=== PATIENT | female | born 2000 | race Hispanic/Latino ===

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

== ENCOUNTER 2019-05-23 15:36 | Inpatient (IN) | payer MEDICAID, OTHER ==
[~2019-05-23] VITALS: Ht 160 cm; Wt 90.6 kg
[2019-05-23] MEDS ORDERED: METOCLOPRAMIDE 10 MG/2 ML VIAL ONE (16:09)
[2019-05-23 16:10] LABS: BASOPHILS % (AUTO) 0.3 % (0.0-5.0); HEMATOCRIT 39.1 % (36-48); LYMPHOCYTES % (AUTO) 29.7 % (21.0-51.0); MEAN CORPUSCULAR HEMOGLOBIN 30.6 pg (27.0-33.0); MEAN CORPUSCULAR VOLUME 87.2 fL (80-100); MONOCYTES % (AUTO) 9.1 % (3.0-13.0); NEUTROPHILS % (AUTO) 59.9 % (40.0-77.0); PLATELET COUNT (AUTO) 234 K/uL (130-400); RED BLOOD CELL COUNT(AUTO) 4.49 MIL/uL (4.00-5.50); RED CELL DISTRIBUTION WIDTH 13.9 % (11.0-15.5); WHITE BLOOD COUNT (AUTO) 7.6 K/uL (4.8-10.8)
[2019-05-23] MEDS ORDERED: SODIUM CHLORIDE 0.9% 1000ML 1,000 ML IV ONE ×3 (16:10→20:21)
[2019-05-23 16:21] LABS: CREATININE 4.2 mg/dL (0.5-1.5); POTASSIUM 3.6 mmol/L (3.5-5.1)
[2019-05-23 16:31] LABS: ALBUMIN 3.5 g/dL (3.5-5.0); BILIRUBIN,TOTAL 0.8 mg/dL (0.2-1.0); TOTAL PROTEIN, SERUM 7.9 g/dL (6.0-8.3)
[2019-05-23 17:58] LABS: APPEARANCE,URINE Clear (CLEAR); BILIRUBIN,URINE Negative (NEGATIVE); COLOR,URINE Yellow (YELLOW); GLUCOSE, URINE (UA) Negative (NEGATIVE); KETONES,URINE Trace mg/dL (NEGATIVE); LEUKOCYTE ESTERASE ,URINE Negative (NEGATIVE); NITRATE,URINE Negative (NEGATIVE); OCCULT BLOOD,URINE Small (NEGATIVE); PH,URINE 5.5 (5.0-8.0); PROTEIN,URINE POS 1+ mg/dL (NEGATIVE); UROBILINOGEN,URINE 0.2 mg/dL (0.2-1.0)
[2019-05-23 18:05] LABS: AMPHET/METH SCREEN,URINE NEGATIVE (NEGATIVE); BARBITURATE SCREEN, URINE POSITIVE (NEGATIVE); BENZODIAZEPINES SCREEN,URINE NEGATIVE (NEGATIVE); CANNABINOID SCREEN,URINE NEGATIVE (NEGATIVE); COCAINE SCREEN,URINE NEGATIVE (NEGATIVE); OPIATE SCREEN,URINE NEGATIVE (NEGATIVE); PHENCYCLIDINE SCREEN,URINE NEGATIVE (NEGATIVE)
[2019-05-23 18:11] LABS: RBC,URINE 0-1 /HPF (0-1); WBC,URINE 0-1 /HPF (0-1)
[2019-05-23 18:12] LABS: BACTERIA,URINE Few /HPF (None Seen)
[2019-05-23] MEDS: SODIUM CHLORIDE 0.9% 1000ML 1,000 ML IV SCH (19:51)
[2019-05-23] MEDS ORDERED: ACETAMINOPHEN 325 MG TAB PO PRN ×2 (20:00)
[2019-05-23] MEDS ORDERED: FAMOTIDINE/PF 20 MG/2 ML VIAL IV ONE (20:21)
[2019-05-23 21:15] VITALS: BP 126/69
[2019-05-23] MEDS: ONDANSETRON HCL 4 MG/2 ML VIAL IV PRN (21:58)
[2019-05-23] MEDS ORDERED: LEVO150 PO (22:07)
[2019-05-23] MEDS ORDERED: TRAZ-187 PO (22:08)
[2019-05-23 23:28] VITALS: BP 111/61
[2019-05-24 03:20] VITALS: BP 115/57
[2019-05-24 05:37] LABS: CREATININE 4.4 mg/dL (0.5-1.5); POTASSIUM 3.7 mmol/L (3.5-5.1)
[2019-05-24] MEDS: SODIUM CHLORIDE 0.9% 1000ML 1,000 ML IV SCH ×3 (05:47→17:27)
[2019-05-24 08:00] VITALS: BP 110/64
[2019-05-24] MEDS: ONDANSETRON HCL 4 MG/2 ML VIAL IV PRN (08:37)
[2019-05-24] MEDS: FAMOTIDINE/PF 20 MG/2 ML VIAL IV SCH (08:37)
[2019-05-24] MEDS: ENOXAPARIN SODIUM 30 MG/0.3 ML SQ SCH (08:39)
[2019-05-24 12:00] VITALS: BP 110/59
[2019-05-24] MEDS: PROMETHAZINE HCL 25 MG/ML 1ML AMPULE IM PRN ×2 (12:57→17:20)
[2019-05-24] MEDS: MORPHINE SULFATE 2 MG/ML 1ML SYG IVP PRN ×3 (13:36→21:21)
[2019-05-24 16:00] VITALS: BP 115/59
--- NOTE | 2019-05-24 16:00 | NUR ---
INIITAL MET W PT, MOM AT BEDSIDE, LIVES WITH MOM, TAM MCCULLOUGH [phone] WHO WILL SUPPLY TRANPOSRT HOME, PT IS INP OF DAVID, A FT STUDENT- BIOLOGY- AT [employer] AND HAS BEEN GOING TO [facility] FOR ABOUT A YEAR, HOME IS SAFE AND ACCESSIBLE, NO CURRENT INSURANCE, AND DCP IS HOME NEPHROLOGY CONSULT PENDING Addendum: 05/24/19 at 1841 by RAFAEL MCCULLOUGH RN CM Amended: Links added.
--- NOTE | 2019-05-24 18:00 | NUR ---
Notified Dr. Dominguez of consultation. No new orders received.
[2019-05-24 19:20] VITALS: BP 106/58
[2019-05-25] VITALS (7 sets, daily range): BP systolic 109–125; BP diastolic 59–76
[2019-05-25] MEDS: MORPHINE SULFATE 2 MG/ML 1ML SYG IVP PRN ×2 (04:18→20:23)
[2019-05-25] MEDS: PROMETHAZINE HCL 25 MG/ML 1ML AMPULE IM PRN (04:18)
[2019-05-25 05:56] LABS: HEMATOCRIT 33.2 % (36-48); MEAN CORPUSCULAR HEMOGLOBIN 31.2 pg (27.0-33.0); MEAN CORPUSCULAR HGB CONC 35.4 g/dL (32.0-36.0); MEAN CORPUSCULAR VOLUME 88.1 fL (80-100); NUCLEATED RED BLOOD CELLS 0.1 % (0.0-0.19); PLATELET COUNT (AUTO) 197 K/uL (130-400); RED BLOOD CELL COUNT(AUTO) 3.77 MIL/uL (4.00-5.50); RED CELL DISTRIBUTION WIDTH 13.7 % (11.0-15.5); WHITE BLOOD COUNT (AUTO) 6.9 K/uL (4.8-10.8)
[2019-05-25 06:07] LABS: CREATININE 4.8 mg/dL (0.5-1.5); MAGNESIUM 1.9 mg/dL (1.80-2.40); PHOSPHORUS 5.1 mg/dL (2.5-4.9); POTASSIUM 3.9 mmol/L (3.5-5.1); URIC ACID 8.7 mg/dL (2.6-7.2)
[2019-05-25] MEDS: FOLIC ACID/VITAMIN B COMP W-C 1 MG CAP/TAB PO SCH (09:00)
[2019-05-25] MEDS ORDERED: MORPHINE SULFATE 2 MG/ML 1ML SYG IVP PRN (09:45)
[2019-05-25] MEDS: SODIUM CHLORIDE 0.9% 1000ML 1,000 ML IV SCH ×3 (10:03→20:25)
[2019-05-25] MEDS ORDERED: MORPHINE SULFATE 2 MG/ML 1ML SYG ONE (10:08)
[2019-05-25] MEDS: FAMOTIDINE/PF 20 MG/2 ML VIAL IV SCH (10:13)
[2019-05-25] MEDS: ENOXAPARIN SODIUM 30 MG/0.3 ML SQ SCH (10:22)
[2019-05-25] MEDS: ONDANSETRON HCL 4 MG/2 ML VIAL IV PRN ×2 (16:55→21:43)
[2019-05-26] MEDS: SODIUM CHLORIDE 0.9% 1000ML 1,000 ML IV SCH ×3 (03:34→21:04)
[2019-05-26] MEDS: ONDANSETRON HCL 4 MG/2 ML VIAL IV PRN ×3 (03:34→21:08)
[2019-05-26] MEDS: MORPHINE SULFATE 2 MG/ML 1ML SYG IVP PRN ×3 (03:34→21:09)
[2019-05-26 03:59] VITALS: BP 117/73
[2019-05-26 05:06] LABS: HEMATOCRIT 31.1 % (36-48); MEAN CORPUSCULAR HEMOGLOBIN 30.9 pg (27.0-33.0); MEAN CORPUSCULAR HGB CONC 35.8 g/dL (32.0-36.0); MEAN CORPUSCULAR VOLUME 86.3 fL (80-100); PLATELET COUNT (AUTO) 196 K/uL (130-400); RED CELL DISTRIBUTION WIDTH 13.5 % (11.0-15.5); WHITE BLOOD COUNT (AUTO) 6.3 K/uL (4.8-10.8)
[2019-05-26 05:15] LABS: CREATININE 3.5 mg/dL (0.5-1.5); MAGNESIUM 1.7 mg/dL (1.80-2.40); PHOSPHORUS 5.2 mg/dL (2.5-4.9); POTASSIUM 3.9 mmol/L (3.5-5.1)
[2019-05-26 08:00] VITALS: BP 96/55
[2019-05-26] MEDS: FAMOTIDINE/PF 20 MG/2 ML VIAL IV SCH (08:22)
[2019-05-26] MEDS: ENOXAPARIN SODIUM 30 MG/0.3 ML SQ SCH (08:23)
[2019-05-26] MEDS: FOLIC ACID/VITAMIN B COMP W-C 1 MG CAP/TAB PO SCH (08:33)
--- NOTE | 2019-05-26 08:33 | NUR ---
Patient feeling nauseous and declined vitamin PO for now. Iv Zofran administered for nausea.
[2019-05-26 10:04] LABS: HEMOGLOBIN A1C 4.9 % (4.0-6.0)
[2019-05-26 10:12] LABS: HEPATITIS A ANTIBODY IGM Negative (Negative); HEPATITIS B CORE IGM Negative (Negative); HEPATITIS Bs ANTIGEN SCREEN P Negative (Negative)
[2019-05-26 12:00] VITALS: BP 116/60
--- NOTE | 2019-05-26 12:16 | NUR ---
Prepared Reglan for IV administration per physician order. Patient reports eating jello, tea, and apple juice without nausea or vomiting. Patient educated on effects of Reglan to assist with digestion and nausea and vomiting. Side effects of dizziness and drowsiness discussed, patient and father verbalized understanding. Patient requests to shower prior to administration. Medication held until after shower per patient's request.
[2019-05-26] MEDS: METOCLOPRAMIDE 10 MG/2 ML VIAL IVP SCH ×2 (15:16→17:00)
[2019-05-26 16:00] VITALS: BP 113/73
[2019-05-26 20:00] VITALS: BP 132/83
[2019-05-26] MEDS: PROMETHAZINE HCL 25 MG/ML 1ML AMPULE IM PRN (23:48)
[2019-05-27] VITALS: BP 127/57
[2019-05-27] MEDS: MORPHINE SULFATE 2 MG/ML 1ML SYG IVP PRN ×2 (00:36→20:28)
--- NOTE | 2019-05-27 00:38 | NUR ---
PAIN/NAUSEA Gina lopez Director Digital Sales notified re pt.s c/o abdominal pain 04/28.Medicated with Morphine and Phenergan.
[2019-05-27] MEDS: SODIUM CHLORIDE 0.9% 1000ML 1,000 ML IV SCH ×3 (02:03→22:32)
[2019-05-27 04:00] VITALS: BP 117/61
--- NOTE | 2019-05-27 04:42 | NUR ---
ASLEEP Pt appears to be asleep,eyes closed.respirations even and unlabored.
[2019-05-27 05:17] LABS: HEMATOCRIT 33.1 % (36-48); MEAN CORPUSCULAR HEMOGLOBIN 30.8 pg (27.0-33.0); MEAN CORPUSCULAR HGB CONC 35.6 g/dL (32.0-36.0); MEAN CORPUSCULAR VOLUME 86.5 fL (80-100); NUCLEATED RED BLOOD CELLS 0.1 % (0.0-0.19); PLATELET COUNT (AUTO) 230 K/uL (130-400); RED BLOOD CELL COUNT(AUTO) 3.82 MIL/uL (4.00-5.50); RED CELL DISTRIBUTION WIDTH 13.6 % (11.0-15.5); WHITE BLOOD COUNT (AUTO) 6.7 K/uL (4.8-10.8)
[2019-05-27 05:35] LABS: POTASSIUM 4.1 mmol/L (3.5-5.1)
[2019-05-27] MEDS: METOCLOPRAMIDE 10 MG/2 ML VIAL IVP SCH ×3 (06:09→20:20)
[2019-05-27 08:00] VITALS: BP 98/51
[2019-05-27] MEDS: FOLIC ACID/VITAMIN B COMP W-C 1 MG CAP/TAB PO SCH (08:26)
[2019-05-27] MEDS: ENOXAPARIN SODIUM 30 MG/0.3 ML SQ SCH (08:26)
[2019-05-27] MEDS: FAMOTIDINE/PF 20 MG/2 ML VIAL IV SCH (08:27)
[2019-05-27] MEDS: CEFTRIAXONE SODIUM 1 GM IVP SCH (11:07)
[2019-05-27 12:00] VITALS: BP 114/60
[2019-05-27 13:25] LABS: APPEARANCE,URINE Clear (CLEAR); BILIRUBIN,URINE Negative (NEGATIVE); COLOR,URINE Yellow (YELLOW); GLUCOSE, URINE (UA) Negative (NEGATIVE); KETONES,URINE Negative (NEGATIVE); LEUKOCYTE ESTERASE ,URINE Negative (NEGATIVE); NITRATE,URINE Negative (NEGATIVE); OCCULT BLOOD,URINE Small (NEGATIVE); PROTEIN,URINE Negative (NEGATIVE); UROBILINOGEN,URINE 0.2 mg/dL (0.2-1.0)
[2019-05-27 13:48] LABS: BACTERIA,URINE Rare /HPF (None Seen); WBC,URINE 0-1 /HPF (0-1)
[2019-05-27 13:49] LABS: SQUAMOUS EPITHELIAL CELL,UR Rare /HPF (0-2)
[2019-05-27 16:00] VITALS: BP 131/90
[2019-05-27 20:00] VITALS: BP 116/71
[2019-05-28] VITALS: BP 112/61
[2019-05-28 04:00] VITALS: BP 116/66
[2019-05-28] MEDS: SODIUM CHLORIDE 0.9% 1000ML 1,000 ML IV SCH (06:49)
[2019-05-28] MEDS: METOCLOPRAMIDE 10 MG/2 ML VIAL IVP SCH (06:49)
[2019-05-28 08:00] VITALS: BP 108/61
[2019-05-28] MEDS: CEFTRIAXONE SODIUM 1 GM IVP SCH (09:25)
[2019-05-28] MEDS: FAMOTIDINE/PF 20 MG/2 ML VIAL IV SCH (09:25)
[2019-05-28] MEDS: ENOXAPARIN SODIUM 30 MG/0.3 ML SQ SCH (09:25)
[2019-05-28] MEDS: FOLIC ACID/VITAMIN B COMP W-C 1 MG CAP/TAB PO SCH (09:26)
[2019-05-28] MEDS ORDERED: Folic Acid/Vitamin B Comp W-C PO (10:51)
[2019-05-28] MEDS ORDERED: CEFD300C3 PO (10:51)
== END 2019-05-28 11:30 | disposition home or self-care (01) | DRG 392 ==
LOC: EDH 15:36 → OBSVTOIN 15:37 → EDHIP 15:37 → 3BH 21:16
PROVIDERS: ADMIT Internal Medicine; ATTEND Internal Medicine
DX: A08.4 Viral intestinal infection, unspecified (principal); N17.9 Acute kidney failure, unspecified; E86.0 Dehydration; D64.9 Anemia, unspecified; E66.9 Obesity, unspecified; I12.9 Hypertensive chronic kidney disease with stage 1 through stage 4 chronic kidney disease, or unspecified chronic kidney disease; N18.9 Chronic kidney disease, unspecified; E03.9 Hypothyroidism, unspecified; E06.9 Thyroiditis, unspecified; Z68.35 Body mass index [BMI] 35.0-35.9, adult; Z83.3 Family history of diabetes mellitus; Z82.49 Family history of ischemic heart disease and other diseases of the circulatory system
CPT/HCPCS: 36415; 71045; 74176; 76770; 80048; 80053; 80074; 80305; 81001; 82550; 83036; 83690; 83735; 84100; 84550; 84702; 85025; 85027; 86255; G0378; J0696; J1650; J2405; J2550; J2765; J3490; J7030